=== PATIENT | male | born 1945 | race Caucasian/White ===

== ENCOUNTER 2018-02-10 07:15 | Inpatient (IN) | payer OTHER ==
[~2018-02-10 07:15] MED LIST: TRANEXAMIC ACID 1,000 MG in NS (SYRINGE) 50 ML IV ONE
[2018-02-10] MEDS ORDERED: CHLORHEXIDINE GLUC HIBICLENS 118 ML BTL TP ONE (08:36)
[2018-02-10] MEDS ORDERED: THROMBIN (BOVINE) 20,000 UNIT VIAL TP ONE (08:36)
[2018-02-10] MEDS ORDERED: BACITRACIN 50,000 UNITS/10 ML SYR IRR ONE ×2 (08:37→14:29)
[2018-02-10] MEDS ORDERED: CITRATE DEXTROSE SOLN 500 ML BAG ONE (09:04)
[2018-02-10] MEDS ORDERED: fentaNYL 100 MCG/2 ML INJ IT ONE (09:24)
[2018-02-10] MEDS ORDERED: ACETAMINOPHEN 500 MG TAB PO ONE (09:24)
[2018-02-10] MEDS ORDERED: morphINE PF 5 MG/10 ML INJ IT ONE (09:24)
[2018-02-10] MEDS ORDERED: ceFAZolin 2 GM/SWFI 2 GM/20 ML SYR IVP ONE (09:24)
[2018-02-10] MEDS ORDERED: GABAPENTIN 300 MG CAP PO ONE (09:24)
[2018-02-10] MEDS ORDERED: LR 1,000 ML IV ONE (09:25)
[2018-02-10] MEDS ORDERED: LIDOCAINE 1% 2 ML INJ ID PRN (09:25)
--- NOTE | 2018-02-10 10:06 | PDGENHP ---
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 PERRL, EOMI. 5/5 except his left DF 1/5 chronically. + light touch
[2018-02-10] MEDS ORDERED: fentaNYL 100 MCG/2 ML INJ IVP ONE (10:13)
--- NOTE | 2018-02-10 10:18 | PDANEPAE ---
ANE Past Medical History - Cardiovascular History Hx Hypertension: No Hx Arrhythmias: No Hx Chest Pain: No Hx Coronary Artery / Peripheral Vascular Disease: Yes Hx CHF / Valvular Disease: Yes Hx Palpitations: No Cardiovascular History Comment: CABG & MITRAL VALVE REPAIR 07/2017 - Pulmonary History Hx COPD: No Hx Asthma/Reactive Airway Disease: No Hx Recent Upper Respiratory Infection: No Hx Oxygen in Use at Home: No Hx Sleep Apnea: No Sleep Apnea Screening Result - Last Documented: Negative - Neurologic History Hx Cerebrovascular Accident: No Hx Seizures: No Hx Dementia: No - Endocrine History Hx Diabetes: No Endocrine History Comment: METFORMIN - Renal History Hx Renal Disorders: No Renal History Comment: HX KIDNEY STONES - Liver History Hx Hepatic Disorders: No - Neurological & Psychiatric Hx Hx Neurological and Psychiatric Disorders: Yes Neurological / Psychiatric History Comment: DEPRESSION, ANXIETY, BIPLOAR. PARKINSONISM - Cancer History Hx Cancer: No - Congenital Disorder History Hx Congenital Disorders: No - GI History Hx Gastrointestinal Disorders: Yes Gastrointestinal History Comment: CONSTIPATION - Other Health History Other Health History: NEG - Chronic Pain History Chronic Pain: Yes (CHRONIC PAIN PT) - Surgical History Prior Surgeries: CABG X1 W/MITRAL VALVE REPAIR 07/2017. NECK AND BACK SURGERIES X14 - STARTING 2005. R SHOULDER SCOPE. HERNIA REPAIR W/MESH. EPIDURAL INJS MULTIPLE. STEM CELL TX ANE Review of Systems Review of Systems: - Exercise capacity METS (RN): 4 METS ANE Patient History - Allergies Allergies/Adverse Reactions: No Known Allergies Allergy (Unverified 01/18/18 11:56) - Home Medications Home Medications: ARIPiprazole [Abilify 2 mg (*)] 1 mg PO Q3D 01/19/18 [Last Taken 02/10/18 07:20] Aspirin [Aspirin 81mg (*)] 81 mg PO DAILY16 01/19/18 [Last Taken 02/03/18] Atorvastatin Calcium [Lipitor 40 mg (*)] 40 mg PO DAILY16 01/19/18 [Last Taken 02/09/18] Carbidopa/Levodopa 25/100Mg [Sinemet 25/100 MG (*)] 2 tab PO 1200,21 01/19/18 [ Last Taken 02/09/18] Carbidopa/Levodopa 25/100Mg [Sinemet 25/100 MG (*)] 3 tab PO 08,16 01/19/18 [ Last Taken 02/10/18 07:20] Cholecalciferol Vit D3 [Vitamin D3 (*)] 2,000 units PO DAILY 01/19/18 [Last Taken 02/03/18] Cyanocobalamin [Vitamin B12 (*)] 1,000 mcg PO 1200 01/19/18 [Last Taken 02/03/18 ] Cyanocobalamin [Vitamin B12 (*)] 1,000 mcg PO DAILY 01/19/18 [Last Taken ] Docusate Sodium [Colace 100 MG (*)] 100 mg PO HS 01/19/18 [Last Taken 02/09/18] Herbals/Supplements -Info Only 1 ea PO DAILY 01/19/18 [Last Taken 02/03/18] Metoprolol Tartrate [Lopressor 25 mg (*)] 12.5 mg PO BID 01/19/18 [Last Taken ] QUEtiapine FUMARATE [Seroquel 100 mg (*)] 200 mg PO HS 01/19/18 [Last Taken ] Sertraline HCl [Zoloft 100mg (*)] 150 mg PO DAILY 01/19/18 [Last Taken 02/10/18 07:20] clonazePAM [Klonopin (*)] 0.25 mg PO HS PRN 01/19/18 [Last Taken 02/09/18] metFORMIN HCL [Metformin HCl ER] 500 mg PO BID 01/19/18 [Last Taken 02/08/18] oxyCODONE HCL [Oxycontin] 30 mg PO 08,14,21 01/19/18 [Last Taken 02/10/18 07:20] oxyCODONE HCL [Oxycontin] 30 mg PO 1400 01/19/18 [Last Taken 02/09/18] oxyCODONE IR [Oxycodone Ir (*)] 10 mg PO 1000 01/19/18 [Last Taken 02/09/18] oxyCODONE IR [Oxycodone Ir (*)] 10 mg PO 1600 01/19/18 [Last Taken 02/09/18] - NPO status NPO Since - Liquids (Date): 02/10/18 NPO Since - Liquids (Time): 07:20 NPO Since - Solids (Date): 02/09/18 NPO Since - Solids (Time): 20:00 - Smoking Hx Smoking Status: Former smoker - Family Anes Hx Family Hx Anesthesia Complications: NEG ANE Labs/Vital Signs - Vital Signs Blood Pressure: 132/86 Heart Rate: 65 Respiratory Rate: 18 O2 Sat (%): 97 Height: 185.42 cm Weight: 86.183 kg ANE Physical Exam - Airway Neck exam: FROM Mallampati Score: Class 2 Mouth exam: normal dental/mouth exam - Pulmonary Pulmonary: no respiratory distress - Cardiovascular Cardiovascular: regular rate and rhythym - ASA Status ASA Status: III ANE Anesthesia Plan Anesthesia Plan: general endotracheal anesthesia Lines/Monitors: arterial line
[2018-02-10] MEDS: fentaNYL 100 MCG/2 ML INJ IVP PRN ×4 (10:21→18:20)
[2018-02-10] MEDS ORDERED: MIDAZOLAM 2 MG/2 ML VIAL ONE (10:51)
[2018-02-10] MEDS ORDERED: fentaNYL 250 MCG/5 ML INJ ONE ×2 (10:52→11:56)
[2018-02-10] MEDS ORDERED: PROPOFOL/EMULSION 500 MG/50 ML BOTTLE IV ONE ×5 (10:52→15:29)
[2018-02-10] MEDS ORDERED: LIDOCAINE 2% 100 MG/5 ML SYR ONE (10:52)
[2018-02-10] MEDS ORDERED: ROCURONIUM 50 MG/5 ML VIAL ONE (10:52)
[2018-02-10] MEDS ORDERED: fentaNYL 100 MCG/2 ML INJ ONE ×2 (14:18→17:43)
[2018-02-10] MEDS: BUPIVACAINE 0.25% 30 ML SDV ONE ×2 (16:34→16:38)
[2018-02-10] MEDS ORDERED: METOPROLOL TARTRATE 5 MG/5 ML INJ ONE (16:42)
[2018-02-10] MEDS ORDERED: BISACODYL 10 MG SUPP PR PRN (16:57)
[2018-02-10] MEDS ORDERED: NALOXONE HCL 0.4 MG/ML INJ IVP PRN (16:57)
[2018-02-10] MEDS ORDERED: ONDANSETRON DISINTEGRATING 4 MG TAB PO PRN (16:57)
[2018-02-10] MEDS ORDERED: HYDROmorphONE/DILAUDID 2 MG/ML INJ IVP PRN (16:57)
[2018-02-10] MEDS ORDERED: diphenhydrAMINE 25 MG CAP PO PRN (16:57)
[2018-02-10] MEDS ORDERED: LACTULOSE 20 GM/30 ML UDCUP PO PRN (16:57)
[2018-02-10] MEDS ORDERED: ONDANSETRON 4 MG/2 ML VIAL IVP PRN ×2 (16:57→17:28)
[2018-02-10] MEDS ORDERED: NS W/ 20 KCl/L 1,000 ML IV SCH (17:00)
--- NOTE | 2018-02-10 17:04 | SOAPPROG ---
SOAP Progress Note Assessment/Plan: Assessment: 73 yo M sp hardware removal L1/2, T12-L3 fusion with redo L1/2, L2/ 3 TLIF Plan: stable ANTIONETTE x 1 LSO Brace to be fit tomorrow around noon X-rays on 02/11/18 lovenox starts pod #1 please call with neuro changes 02/10/18 17:03 Subjective: + back pain, no leg pain. Objective: Vital Signs Temp Pulse Resp BP Pulse Ox 36.7 C 65 18 132/86 H 97 02/10/18 10:03 02/10/18 10:18 02/10/18 10:18 02/10/18 10:18 02/10/18 10:18 somnolent PERRL, no facial droop FELICIA x 4 except left DF 2/5 (chronically) + light touch ICD10 Worksheet Patient Problems: Problems Problem Status Onset Fusion of spine of thoracolumbar region Acute - ICD10 Problem Qualifiers (1) Fusion of spine of thoracolumbar region
[2018-02-10] MEDS ORDERED: ALBUMIN 5% 250 ML BOTTLE IV ONE (17:17)
--- NOTE | 2018-02-10 17:27 | GOP ---
[f rep st] OPERATIVE REPORT DATE OF OPERATION: 02/10/2018 SURGEON: Dejan Knutson MD NEUROSURGEON: Dejan Knutson MD. PRIZE COORDINATOR: CHELSI Molina. PREOPERATIVE DIAGNOSIS: 1. 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 2. Intractable back pain. 3. Failed back surgery syndrome. 4. High risk surgical candidate for ongoing symptoms given history of 13 prior back surgeries and ex tremely complicated problem. 5. Retained hardware. POSTOPERATIVE DIAGNOSIS: 1. 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 2. Intractable back pain. 3. Failed back surgery syndrome. 4. High risk surgical candidate for ongoing symptoms given history of 13 prior back surgeries and ex tremely complicated problem. 5. Retained hardware. PROCEDURE PERFORMED: Removal of posterior nonsegmental (pedicle screw) fixation at L1-2 with explora tion of spinal fusion at L3-4 and L4-5. Redo right-sided posterior hemilaminectomy and foraminotomie s and facetectomies on the right at L1-2 and L2-3. Placement of posterior segmental (pedicle screw) fixation from T12 through L3 with L1-2 and L2-3 posterior/transforaminal lumbar interbody fusion with 2 structural PEEK interbody spacers, local autograft and bone morphogenic protein. T12 through L3 p osterolateral fusion with local autograft, bone morphogenic protein and morselized allograft. Remova l of retained PEEK interbody spacer at L2-3. Redo interbody fusions at L1-2 and L2-3. Injection of intrathecal narcotics. Use of computer volumetric stereotactic navigation with intraoperative neurop hysiologic testing. FINDINGS: ESTIMATED BLOOD LOSS: 800 cc. INDICATIONS: The patient is a 73-year-old man with an extremely complicated past surgical history in volving his back. He has had 13 prior back surgeries and has failed back surgery syndrome, but as th e two-level nonunion with retained foreign bodies and hardware at L1-2 and L2-3 with a broken off scr ew and interbody spaces with no bone graft in the interspaces and nonunion posterior laterally. He h as intractable back pain and left lower extremity radicular and neuropathic symptoms. The patient un derstands that he is a high risk candidate for surgery and ongoing symptoms, and that we are not addr essing his left leg symptoms but rather trying to repair the nonunion, in the hopes that he will have some relief of his back pain. But there were no guarantees implied of this surgery. DESCRIPTION OF PROCEDURE: After informed consent was obtained, patient was taken to the operating ro om and placed in the prone position on the John table. The thoracolumbosacral areas were prepped and draped in a sterile fashion. After fluoroscopic localization of the correct level, the subcutane ous and intramuscular tissues were infiltrated with local anesthesia. A midline linear incision was then created from approximately T12 through L3. This was carried down to the fascial layer, which wa s then incised using a monopolar electrocautery and carried in a subperiosteal plane along the spinou s process at T12 and down into the laminectomy defect from L1, all the way down to L3. The remaining bone laterally was meticulously exposed in an effort to not get a CSF leak. Once all the remaining anatomy was identified, the prior retained pedicle screws at L1 and L2 were carefully removed on the left-hand side. Following this, pedicle screws were placed bilaterally at T12, L1, L2 and L3 using c Ele.meuter volumetric stereotactic navigation. Short rods were then placed across the L1-2 and L2-3 in order to test for nonunions, which was definitely present. The bones were not fused and the interspa juvenal moved. These short rods were removed and the microscope was brought in and extensive redo decomp ressions were performed on the right at the L1-2 and L2-3 levels with complete occlusion of the facet joints and neural foramen. There was an extensive amount of scar tissue and this required very meti culous dissection in order to avoid a CSF leak. But, this was eventually accomplished with excellent decompression and exposure of the disk spaces. Serial distraction was then created across the inter spaces using short rods at L1-2 and L2-3, during which time complete diskectomies were performed with preparation of the endplates and placement of 2 structural PEEK interbody spacers, local autograft a nd bone morphogenic protein at each level for L1-2 and L2-3 posterior/transforaminal lumbar interbody fusions. The T12-L1 facet joint was then extensively decorticated and the remaining local autograft , bone morphogenic protein and morselized allograft was placed out laterally from T12 through L3. Th e L3-4 level was explored and inspected and noted to be a solid fusion. Following placement of all t he posterolateral bone graft material, 200 mcg of Duramorph along with 50 mcg of fentanyl were inject ed intrathecally for postoperative pain control. A drain was placed and after re-verification of goo d position of the screws, rods, and interbody spacers, the wound was closed in a layered fashion usin g interrupted Vicryl sutures followed by Steri-Strips on the skin. COMPLICATIONS: None. DISPOSITION: The patient is currently in the process of being repositioned for extubation. /[id number]/MODL
[2018-02-10] MEDS ORDERED: ALBUTEROL 3 ML DEYVIAL IH PRN (17:28)
[2018-02-10] MEDS ORDERED: LR 500 ML IV PRN (17:28)
--- NOTE | 2018-02-10 17:38 | POSTANESTH ---
Post Anesthetic Evaluation Cardiovascular Status: Tx Hyper/Hypo-tension Respiratory Status: Similar to Pre-op Cond. Level of Consciousness/Mental Status: Mildly Sleepy, Arousable Pain Control: Adequate, Prn Tx Ordered Nausea/Vomiting Control: Adequate, Prn Tx Ordered Complications Possibly Related to Anesthesia: None Noted
--- NOTE | 2018-02-10 17:43 | PDMN ---
Medical Necessity Medical necessity: Patient meets inpatient criteria per physician/PA notes and [facility] [place] [facility]-820 Lumbar Fusion - 3 days postop - ( CPT 22721, 64270, 34297, 84784 / Medicare inpatient-only surgery.)
[2018-02-10] MEDS: METHOCARBAMOL 750 MG TAB PO PRN (19:20)
[2018-02-10] MEDS: oxyCODONE IR 5 MG TAB PO PRN ×2 (19:20→22:18)
[2018-02-10] MEDS: HYDROmorphONE/DILAUDID 6 MG/30 ML PCA IV PRN (19:45)
[2018-02-10] MEDS: ATORVASTATIN CALCIUM 40 MG TAB PO SCH (20:04)
[2018-02-10] MEDS: SENNOSIDES/DOCUSATE SODIUM TAB PO SCH (20:35)
[2018-02-10] MEDS: CARBIDOPA/LEVODOPA 25 MG/100 MG TAB PO SCH ×2 (20:35→23:19)
[2018-02-10] MEDS: FAMOTIDINE 20 MG TAB PO SCH (20:35)
[2018-02-10] MEDS: DOCUSATE SODIUM 100 MG CAP PO SCH (20:35)
[2018-02-10] MEDS: POLYETHYLENE GLYCOL 3350 17 GM PKT PO SCH (20:36)
[2018-02-10] MEDS ORDERED: ceFAZolin 2 GM/DEXTROSE 100 ML IV SCH (22:00)
[2018-02-10] MEDS: metFORMIN SR 500 MG TAB PO SCH (22:03)
[2018-02-10] MEDS: METOPROLOL TARTRATE 25 MG TAB PO SCH (22:03)
[2018-02-10] MEDS: QUEtiapine FUMARATE 100 MG TAB PO SCH (22:19)
[2018-02-10] MEDS: ceFAZolin 2 GM/SWFI 2 GM/20 ML SYR IVP SCH (23:19)
[2018-02-11] MEDS: METHOCARBAMOL 750 MG TAB PO PRN ×4 (00:11→21:45)
[2018-02-11] MEDS: oxyCODONE IR 5 MG TAB PO PRN ×4 (02:23→17:02)
[2018-02-11] MEDS: HYDROmorphONE/DILAUDID 6 MG/30 ML PCA IV PRN ×3 (04:30→22:56)
[2018-02-11 04:46] LABS: PLATELET COUNT 119 10^3/uL (150-400)
[2018-02-11] MEDS: ceFAZolin 2 GM/SWFI 2 GM/20 ML SYR IVP SCH (05:49)
--- NOTE | 2018-02-11 07:06 | SOAPPROG ---
SOAP Progress Note Assessment/Plan: Assessment: POD #1 sp L1/2 hardware removal and L1/2, L2/3 TLIF and T12-L3 instrumentation doing well this AM. Pain controlled currently. He has very high narcotic tolerance Plan: Continue ANTIONETTE to suction Follow H/H PT/OT as tolerated Lovenox starts today xrays when he can tolerate it Discussed with Dr. Alba Subjective: awake, alert, pain controlled. States his left thigh feels like someone hit it with a hammer. Has preexisting numbness in his left thigh Objective: Vital Signs Temp Pulse Resp BP Pulse Ox 36.5 C 71 25 H 96/56 L 100 02/10/18 20:24 02/11/18 06:00 02/11/18 06:00 02/11/18 06:00 02/11/18 06:00 Laboratory Results 02/11/18 04:30 02/11/18 04:30 02/10/18 02/11/18 02/12/18 05:59 05:59 05:59 Intake Total 8500 Output Total 2314 Balance 6186 Neuro: CHA to command, sens +LT throughout except preexisting numbness in his left lateral thigh Dressing: CDI ANTIONETTE: 455 since surgery ICD10 Worksheet Patient Problems: Problems Problem Status Onset Fusion of spine of thoracolumbar region Acute
[2018-02-11] MEDS: SERTRALINE HCL 100 MG TAB PO SCH (08:43)
[2018-02-11] MEDS: FAMOTIDINE 20 MG TAB PO SCH ×2 (08:44→21:34)
[2018-02-11] MEDS: CARBIDOPA/LEVODOPA 25 MG/100 MG TAB PO SCH ×4 (08:44→21:45)
[2018-02-11] MEDS: metFORMIN SR 500 MG TAB PO SCH ×2 (08:44→21:36)
[2018-02-11] MEDS: SENNOSIDES/DOCUSATE SODIUM TAB PO SCH ×2 (08:44→21:36)
[2018-02-11] MEDS: METOPROLOL TARTRATE 25 MG TAB PO SCH ×2 (08:44→21:34)
[2018-02-11] MEDS: POLYETHYLENE GLYCOL 3350 17 GM PKT PO SCH ×3 (08:45→21:37)
[2018-02-11] MEDS: ENOXAPARIN 40 MG/0.4 ML SYR SC SCH (08:45)
[2018-02-11] MEDS: CHOLECALCIFEROL VIT D3 1,000 UNITS TAB PO SCH (08:45)
[2018-02-11] MEDS: CYANO/VITAMIN B12 1000 MCG TAB PO SCH ×2 (10:14→13:27)
--- NOTE | 2018-02-11 14:22 | ASMTCASEMG ---
Living Arrangements What is your living Answers: With Spouse arrangement? Who do you live with? Type Of Residence What kind of residence do Answers: House you live in? Discharge Plan Comments Coordination Status Comments Notes: Patient is a 73yo male who returns to [facility] for removal of hardware L1/2, and fusion with redo L1/2, L2/3 TLIF.Patient has failed back surgery syndrome and is at high risk due to hx of 13 prior back surgeries. OT/PT evals ordered. D/C needs TBD. CM will follow. Date Signed: 02/11/2018 02:22 PM Electronically Signed By:Mary Ontiveros LCSW
[2018-02-11] MEDS: ATORVASTATIN CALCIUM 40 MG TAB PO SCH (16:35)
[2018-02-11] MEDS: QUEtiapine FUMARATE 100 MG TAB PO SCH (21:33)
[2018-02-11] MEDS: DOCUSATE SODIUM 100 MG CAP PO SCH (21:34)
[2018-02-11] MEDS: clonazePAM 0.5 MG TAB PO PRN (21:34)
[2018-02-12] MEDS: FAMOTIDINE 20 MG TAB PO SCH ×2 (08:16→20:41)
[2018-02-12] MEDS: SENNOSIDES/DOCUSATE SODIUM TAB PO SCH ×2 (08:16→20:44)
[2018-02-12] MEDS: POLYETHYLENE GLYCOL 3350 17 GM PKT PO SCH ×3 (08:16→20:44)
[2018-02-12] MEDS: ENOXAPARIN 40 MG/0.4 ML SYR SC SCH (08:16)
[2018-02-12] MEDS: CHOLECALCIFEROL VIT D3 1,000 UNITS TAB PO SCH (08:16)
[2018-02-12] MEDS: metFORMIN SR 500 MG TAB PO SCH ×2 (08:17→20:44)
[2018-02-12] MEDS: METOPROLOL TARTRATE 25 MG TAB PO SCH ×2 (08:17→20:41)
[2018-02-12] MEDS: SERTRALINE HCL 100 MG TAB PO SCH (08:17)
[2018-02-12] MEDS: CYANO/VITAMIN B12 1000 MCG TAB PO SCH ×2 (08:18→12:57)
[2018-02-12] MEDS: CARBIDOPA/LEVODOPA 25 MG/100 MG TAB PO SCH ×4 (09:21→20:44)
--- NOTE | 2018-02-12 10:10 | NEUSURGPN ---
Date of Surgery: 02/10/18 Post Op Day: 2 Assessment/Plan: POD #2 sp L1/2 hardware removal and L1/2, L2/3 TLIF and T12-L3 instrumentation Plan: - Continue ANTIONETTE to suction - Follow H&H - PT/OT - wear brace when out of bed - postop x-rays completed: stable, hardware in good placement, has retained screw at L2 - pain control: wean off of ANALYTICAL STATISTICIAN - SCDs/TEDs/Lovenox Discussed with Dr. Alba Subjective: Sitting in bedside chair. No lower extremity symptoms. Objective: Awake. Alert. Following commands Muscle strength full at 5/5 Sensation intact Catheter Insertion Date: 02/10/18 - Physician Discussed Patient with DrGricel: [facility] Physical Exam - Vitals, I&O, Labs I and O 02/11/18 02/12/18 02/13/18 05:59 05:59 05:59 Intake Total 8500 269 Output Total 2314 475 60 Balance 6186 -475 209 Weight 86 kg Intake: Oral (ml) 1000 IV Intake (ml) 6550 269 IV Infused (ml) 950 NS W/ 20 KCl/L 1,000 ml @ 950 100 mls/hr IV CONT MIS Rx#:[id number] Output: Urine (ml) 1059 Catheter 1059 Estimated Blood Loss (ml) 800 ANTIONETTE Drain Output (ml) 455 475 60 #1 Back 455 475 60 Other: Intake Quantity Yes Sufficient Number of Voids Toilet 1 1 Vital Signs Temp Pulse Resp BP Pulse Ox 37.4 C 80 16 114/62 99 02/12/18 07:20 02/12/18 10:01 02/12/18 10:01 02/12/18 08:17 02/12/18 10:01 Laboratory Results 02/11/18 11:55 02/11/18 04:30 ICD10 Worksheet Patient Problems: Problems Problem Status Onset Fusion of spine of thoracolumbar region Acute
[2018-02-12] MEDS: ATORVASTATIN CALCIUM 40 MG TAB PO SCH (16:49)
[2018-02-12] MEDS: HYDROmorphONE/DILAUDID 6 MG/30 ML PCA IV PRN (17:05)
[2018-02-12] MEDS: DOCUSATE SODIUM 100 MG CAP PO SCH (20:40)
[2018-02-12] MEDS: QUEtiapine FUMARATE 100 MG TAB PO SCH (20:44)
[2018-02-13] MEDS: clonazePAM 0.5 MG TAB PO PRN (03:13)
[2018-02-13] MEDS ORDERED: ARIPiprazole 2 MG TAB PO SCH (08:00)
[2018-02-13] MEDS: MAGNESIUM HYDROXIDE 30 ML UDCUP PO PRN (08:10)
[2018-02-13] MEDS: CHOLECALCIFEROL VIT D3 1,000 UNITS TAB PO SCH (08:10)
[2018-02-13] MEDS: ENOXAPARIN 40 MG/0.4 ML SYR SC SCH (08:10)
[2018-02-13] MEDS: POLYETHYLENE GLYCOL 3350 17 GM PKT PO SCH ×3 (08:10→20:42)
[2018-02-13] MEDS: metFORMIN SR 500 MG TAB PO SCH ×2 (08:10→20:42)
[2018-02-13] MEDS: CARBIDOPA/LEVODOPA 25 MG/100 MG TAB PO SCH ×4 (08:10→20:42)
[2018-02-13] MEDS: CYANO/VITAMIN B12 1000 MCG TAB PO SCH ×2 (08:11→13:12)
[2018-02-13] MEDS: SENNOSIDES/DOCUSATE SODIUM TAB PO SCH ×2 (08:11→20:42)
[2018-02-13] MEDS: SERTRALINE HCL 100 MG TAB PO SCH (08:11)
[2018-02-13] MEDS: FAMOTIDINE 20 MG TAB PO SCH ×2 (08:11→20:44)
[2018-02-13] MEDS: METOPROLOL TARTRATE 25 MG TAB PO SCH ×2 (08:16→20:43)
--- NOTE | 2018-02-13 08:25 | NEUSURGPN ---
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 On Oxycontin - SCDs/TEDs/Lovenox - please contact neurosurgery with any changes in neuro status/exam Subjective: No new overnight issues. Continues to have pain concentrated at the back. Objective: Awake. Alert. PERRL. EOMI Incision with dressing Muscle strength 5/5 ecept for left foot weakness at 4+/5 Sensation intact Catheter Insertion Date: 02/10/18 Neurosurgery Physical Exam - Vitals, I&O, Labs I and O 02/12/18 02/13/18 02/14/18 05:59 05:59 05:59 Intake Total 1469 Output Total 475 300 Balance -475 1169 Intake: Oral (ml) 1200 IV Intake (ml) 269 Output: ANTIONETTE Drain Output (ml) 475 300 #1 Back 475 300 Other: Intake Quantity Yes Yes Sufficient Number of Voids Toilet 1 1 Vital Signs Temp Pulse Resp BP Pulse Ox 36.9 C 84 12 96/67 L 95 02/13/18 07:32 02/13/18 08:16 02/13/18 07:32 02/13/18 08:16 02/13/18 07:32 Laboratory Results 02/12/18 12:00 02/11/18 04:30 ICD10 Worksheet Patient Problems: Problems Problem Status Onset Fusion of spine of thoracolumbar region Acute
--- NOTE | 2018-02-13 11:47 | ASMTCMCOM ---
CM Note CM Note Notes: Patient is POD #3 L1-2 hardware removal and L1/2 L2/3 TLIF. Therapies are recommending home care. I spoke with patient's Martha who says they have worked with [facility] recently after patient's open heart surgery last fall. I sent a referral with a note requesting his prior PT. Case Management will follow. Date Signed: 02/13/2018 11:46 AM Electronically Signed By:Irene Bonds RN
[2018-02-13] MEDS: METHOCARBAMOL 750 MG TAB PO PRN ×2 (14:34→20:42)
[2018-02-13] MEDS: ATORVASTATIN CALCIUM 40 MG TAB PO SCH (16:24)
[2018-02-13] MEDS: QUEtiapine FUMARATE 100 MG TAB PO SCH (20:43)
[2018-02-13] MEDS: DOCUSATE SODIUM 100 MG CAP PO SCH (20:44)
[2018-02-14] MEDS: MAGNESIUM HYDROXIDE 30 ML UDCUP PO PRN (08:22)
[2018-02-14] MEDS: CARBIDOPA/LEVODOPA 25 MG/100 MG TAB PO SCH ×4 (08:23→20:21)
[2018-02-14] MEDS: SERTRALINE HCL 100 MG TAB PO SCH (08:23)
[2018-02-14] MEDS: SENNOSIDES/DOCUSATE SODIUM TAB PO SCH ×2 (08:23→20:21)
[2018-02-14] MEDS: CYANO/VITAMIN B12 1000 MCG TAB PO SCH ×2 (08:24→11:30)
[2018-02-14] MEDS: FAMOTIDINE 20 MG TAB PO SCH ×2 (08:24→20:22)
[2018-02-14] MEDS: CHOLECALCIFEROL VIT D3 1,000 UNITS TAB PO SCH (08:24)
[2018-02-14] MEDS: metFORMIN SR 500 MG TAB PO SCH ×2 (08:24→20:22)
[2018-02-14] MEDS: POLYETHYLENE GLYCOL 3350 17 GM PKT PO SCH ×3 (08:25→20:29)
[2018-02-14] MEDS: ENOXAPARIN 40 MG/0.4 ML SYR SC SCH (08:25)
[2018-02-14] MEDS: METOPROLOL TARTRATE 25 MG TAB PO SCH ×2 (08:42→20:22)
--- NOTE | 2018-02-14 09:50 | SOAPPROG ---
SOAP Progress Note Assessment/Plan: Assessment: 73 yo M POD #4 hardware removal L1/2, T12-L3 fusion with redo L1/2, L2/3 TLIF Plan: stable ANTIONETTE x 1 LSO Brace when out of bed X-rays stable scd/avery/lovenox for dvt prophylaxis PT/OT may need inpatient rehab please call with neuro changes discussed with Dr Alba 02/10/18 17:03 02/14/18 09:49 Subjective: back pain improving, no leg pain Objective: Vital Signs Temp Pulse Resp BP Pulse Ox 36.6 C 74 16 119/92 H 94 02/14/18 08:00 02/14/18 08:42 02/14/18 08:00 02/14/18 08:42 02/14/18 08:00 Laboratory Results 02/12/18 12:00 02/11/18 04:30 02/13/18 02/14/18 02/15/18 05:59 05:59 05:59 Intake Total 1469 2360 Output Total 300 170 Balance 1169 2190 AAOx4 PERRL, EOMI, no facial droop 5/5 + light touch C/D/I ICD10 Worksheet Patient Problems: Problems Problem Status Onset Fusion of spine of thoracolumbar region Acute - ICD10 Problem Qualifiers (1) Fusion of spine of thoracolumbar region
[2018-02-14] MEDS: METHOCARBAMOL 750 MG TAB PO PRN ×2 (14:23→20:22)
[2018-02-14] MEDS: ATORVASTATIN CALCIUM 40 MG TAB PO SCH (16:21)
[2018-02-14] MEDS: clonazePAM 0.5 MG TAB PO PRN (20:21)
[2018-02-14] MEDS: DOCUSATE SODIUM 100 MG CAP PO SCH (20:22)
[2018-02-14] MEDS: QUEtiapine FUMARATE 100 MG TAB PO SCH (20:22)
[2018-02-14 22:58] VITALS: TEMP 98.4
[2018-02-15] MEDS: CARBIDOPA/LEVODOPA 25 MG/100 MG TAB PO SCH (07:44)
[2018-02-15 07:50] VITALS: BP 118/68; PULSE 64; RESP 16; O2SAT 90
[2018-02-15] MEDS: ENOXAPARIN 40 MG/0.4 ML SYR SC SCH (08:38)
[2018-02-15] MEDS: CHOLECALCIFEROL VIT D3 1,000 UNITS TAB PO SCH (08:38)
[2018-02-15] MEDS: FAMOTIDINE 20 MG TAB PO SCH (08:38)
[2018-02-15] MEDS: SERTRALINE HCL 100 MG TAB PO SCH (08:38)
[2018-02-15] MEDS: metFORMIN SR 500 MG TAB PO SCH (08:39)
[2018-02-15] MEDS: SENNOSIDES/DOCUSATE SODIUM TAB PO SCH (08:39)
[2018-02-15] MEDS: CYANO/VITAMIN B12 1000 MCG TAB PO SCH ×2 (08:39→09:28)
[2018-02-15] MEDS: METOPROLOL TARTRATE 25 MG TAB PO SCH (08:40)
[2018-02-15] MEDS: oxyCODONE IR 5 MG TAB PO PRN ×2 (08:49→11:17)
--- NOTE | 2018-02-15 09:25 | NEUSURGPN ---
Date of Surgery: 02/10/18 Post Op Day: 5 Assessment/Plan: POD #5 sp L1/2 hardware removal and L1/2, L2/3 TLIF and T12-L3 instrumentation Plan: - ANTIONETTE drain to be removed today - PT/OT - wear brace when out of bed - postop x-rays completed: stable, hardware in good placement, has retained screw at L2 - pain controlled on orals - SCDs/TEDs/Lovenox - please contact neurosurgery with any changes in neuro status/exam - dispo: home today with home health care Subjective: Doing well this morning. Pain controlled. Ready to go home today. Objective: Awake. Alert. PERRL. EOMI Following commands Muscle strength full at 5/5 Sensation intact Catheter Insertion Date: 02/10/18 - Physician Discussed Patient with : [facility] Neurosurgery Physical Exam - Vitals, I&O, Labs I and O 02/14/18 02/15/18 02/16/18 05:59 05:59 05:59 Intake Total 2360 600 Output Total 170 70 Balance 2190 530 Intake: Oral (ml) 2100 600 IV Intake (ml) 260 Output: ANTIONETTE Drain Output (ml) 170 70 #1 Back 170 70 Other: Number of Voids Toilet 1 1 Number of Stools Toilet 1 Vital Signs Temp Pulse Resp BP Pulse Ox 36.9 C 64 16 118/68 90 L 02/15/18 07:49 02/15/18 08:40 02/15/18 07:49 02/15/18 08:40 02/15/18 07:49 Laboratory Results 02/12/18 12:00 02/11/18 04:30 ICD10 Worksheet Patient Problems: Problems Problem Status Onset Fusion of spine of thoracolumbar region Acute
[2018-02-15] MEDS: POLYETHYLENE GLYCOL 3350 17 GM PKT PO SCH (09:29)
--- NOTE | 2018-02-15 09:32 | PDIAF ---
- Diagnosis Diagnosis: Lumbar stenosis s/p fusion Code Status: Full Code - Medication Management Discharge Medications: Medications to Continue on Transfer ARIPiprazole [Abilify 2 mg (*)] 1 mg PO Q3D 01/19/18 [Last Taken 02/10/18 07:20] Atorvastatin Calcium [Lipitor 40 mg (*)] 40 mg PO DAILY16 01/19/18 [Last Taken 02/09/18] Carbidopa/Levodopa 25/100Mg [Sinemet 25/100 MG (*)] 2 tab PO 1200,21 01/19/18 [ Last Taken 02/09/18] Carbidopa/Levodopa 25/100Mg [Sinemet 25/100 MG (*)] 3 tab PO 08,16 01/19/18 [ Last Taken 02/10/18 07:20] Cholecalciferol Vit D3 [Vitamin D3 (*)] 2,000 units PO DAILY 01/19/18 [Last Taken 02/03/18] Cyanocobalamin [Vitamin B12 (*)] 1,000 mcg PO 1200 01/19/18 [Last Taken 02/03/18 ] Cyanocobalamin [Vitamin B12 (*)] 1,000 mcg PO DAILY 01/19/18 [Last Taken ] Docusate Sodium [Colace 100 MG (*)] 100 mg PO HS 01/19/18 [Last Taken 02/09/18] Metoprolol Tartrate [Lopressor 25 mg (*)] 12.5 mg PO BID 01/19/18 [Last Taken ] QUEtiapine FUMARATE [Seroquel 100 mg (*)] 200 mg PO HS 01/19/18 [Last Taken ] Sertraline HCl [Zoloft 100mg (*)] 150 mg PO DAILY 01/19/18 [Last Taken 02/10/18 07:20] clonazePAM [Klonopin (*)] 0.25 mg PO HS PRN 01/19/18 [Last Taken 02/09/18] metFORMIN HCL [Metformin HCl ER] 500 mg PO BID 01/19/18 [Last Taken 02/08/18] Diazepam [Valium 5 MG (*)] 5 mg PO Q8HRS PRN #60 tab 02/15/18 [Last Taken Unknown] oxyCODONE CR [Oxycontin] 40 mg PO ,, #60 tab 02/15/18 [Last Taken Unknown] oxyCODONE IR [Oxycodone Ir (*)] 10 - 20 mg PO Q4HRS PRN #90 tab 02/15/18 [Last Taken Unknown] Discharge Medications: Refer to the Discharge Home Medication list for PRN reason. - Orders Services needed: Home Care, Physical Therapy, Occupational Therapy Home Care Face to Face: I certify that this patient was under my care and that I had the required [id number] encounter meeting the encounter requirements on the discharge day. My findings support the fact that the patient is homebound as defined in Home Care Face to Face Continued: CMS Chapter 7 Medicare Benefits Manual 30.1.1 , The condition of the patient is such that there exists a normal inability to leave home and consequently, leaving home would require a considerable and taxing effort. Diet Recommendation: no restrictions on diet Diet Texture: Regular Texture Diet Wound Care Instructions: Ok to shower and get incision wet. Be gentle, no scrubbing. No soaking in the water. - Follow Up Care Current Providers and Referrals: Pablo Bermudez MD [Primary Care Provider] - Dejan Knutson MD [Medical Doctor] - follow up in 2 weeks
[2018-02-15] MEDS: METHOCARBAMOL 750 MG TAB PO PRN (11:17)
--- NOTE | 2018-02-15 15:58 | ASMTCMCOM ---
CM Note CM Note Notes: Pt medically stable for d/c with [facility] and supervision. Confirmed w Rula at [facility] she received orders. Date Signed: 02/15/2018 03:58 PM Electronically Signed By:INGE Eng
--- NOTE | 2018-02-15 15:59 | ASDISCHSUM ---
Discharge Information Plan Status:Home with Home Health Medically Cleared to Leave: Discharge Date:02/15/2018 12:22 PM CM D/C Disposition:Home Health Service ADT D/C Disposition:[id number] Projected Discharge Date:02/15/2018 11:00 AM Transportation at D/C:Family Discharge Delay Reason: Follow-Up Date:02/15/2018 11:00 AM Discharge Slot: Final Diagnosis: Placement Information Referral Type:*Home Health Care Services Referral ID:[id number] Provider Name:[facility] Address 1:[address] Phone Number: Address 2: [address] Fax Number: City:[place] Selection Factors: State:[place] Patient Contact Information Contact Name:BERTHA Relationship: Address:[address] Work Phone: Gianluca:BARBER Eason Phone: State/Zip Code:[place] [address] Email: Financial Information Financial Class:Medicare Advantage Plans Primary Plan Desc:[facility] ADVANTAGE PLANS Primary Plan Number:[id number] Secondary Plan Desc: Secondary Plan Number: Assessment Information [facility] Initial CM Assessment Living Arrangements What is your living Answers: With Spouse arrangement? Who do you live with? Type Of Residence What kind of residence do Answers: House you live in? Discharge Plan Comments Coordination Status Comments Notes: Patient is a 73yo male who returns to [facility] for removal of hardware L1/2, and fusion with redo L1/2, L2/3 TLIF.Patient has failed back surgery syndrome and is at high risk due to hx of 13 prior back surgeries. OT/PT evals ordered. D/C needs TBD. CM will follow. Date Signed: 02/11/2018 02:22 PM Electronically Signed By:Mary Ontiveros LCSW [facility] CM Progress Note CM Note CM Note Notes: Patient is POD #3 L1-2 hardware removal and L1/2 L2/3 TLIF. Therapies are recommending home care. I spoke with patient's Martha who says they have worked with [facility] recently after patient's open heart surgery last fall. I sent a referral with a note requesting his prior PT. Case Management will follow. Date Signed: 02/13/2018 11:46 AM Electronically Signed By:Irene Bonds RN [facility] CM Progress Note CM Note CM Note Notes: Pt medically stable for d/c with [facility] and supervision. Confirmed brandyn Horta at [facility] she received orders. Date Signed: 02/15/2018 03:58 PM Electronically Signed By:INGE Eng Intervention Information Intervention Type:*IM-Signed Date of Service:02/15/2018 10:07 AM Patient Type:Inpatient Staff Member:Ilsa Wang Hours: Discipline: Severity: Comment:
== END 2018-02-15 12:22 | disposition home health service (06) | DRG 455 ==
LOC: F3N 09:18 → F2N 16:24 → F3N 02-11 17:14
PROVIDERS: ADMIT Neurological Surgery; ATTEND Neurological Surgery
PROC: 0RGA071 Fusion of Thoracolumbar Vertebral Joint with Autologous Tissue Substitute, Posterior Approach, Posterior Column, Open Approach (ICD-10-PCS; principal; 2018-02-10 10:30)
PROC: 0SG10AJ Fusion of 2 or more Lumbar Vertebral Joints with Interbody Fusion Device, Posterior Approach, Anterior Column, Open Approach (ICD-10-PCS; principal; 2018-02-10 10:30)
PROC: 0SP004Z Removal of Internal Fixation Device from Lumbar Vertebral Joint, Open Approach (ICD-10-PCS; principal; 2018-02-10 10:30)
PROC: 0SG1071 Fusion of 2 or more Lumbar Vertebral Joints with Autologous Tissue Substitute, Posterior Approach, Posterior Column, Open Approach (ICD-10-PCS; principal; 2018-02-10 10:30)
PROC: 00NY0ZZ Release Lumbar Spinal Cord, Open Approach (ICD-10-PCS; principal; 2018-02-10 10:30)
PROC: 8E0WXBZ Computer Assisted Procedure of Trunk Region (ICD-10-PCS; principal; 2018-02-10 10:30)
PROC: 4A1004G Monitoring of Central Nervous Electrical Activity, Intraoperative, Open Approach (ICD-10-PCS; principal; 2018-02-10 10:30)
DX: M96.0 Pseudarthrosis after fusion or arthrodesis (principal); F31.9 Bipolar disorder, unspecified; G20 Parkinson's disease; Z87.891 Personal history of nicotine dependence; Z79.84 Long term (current) use of oral hypoglycemic drugs; Z11.9 Encounter for screening for infectious and parasitic diseases, unspecified; Z95.1 Presence of aortocoronary bypass graft
CPT/HCPCS: 97116-GP; 97161-GP; 97165-GO; 97530-GO; 97530-GP; 97535-GO; C1713; C1762; G8978-GP-CJ; G8979-GP-CI; G8987-GO-CI; G8988-GO-CI; J0171; J0690; J1170; J1650; J2001; J2250; J2270; J2274; J2704; J3010; J7060; P9041